=== PATIENT | female | born 1995 | race Two or more races ===

== ENCOUNTER 2025-11-25 09:35 | Observation (INO) | payer MEDICAID, OTHER ==
[~2025-11-25] VITALS: Ht 172.7 cm; Wt 108.4 kg
--- NOTE | 2025-11-25 11:14 | DVH ---
LIMITED OB ULTRASOUND > 14 WKS: HISTORY: r/o previa, abruption. TECHNIQUE: Multiple real-time grayscale images of the gravid uterus with duplex Doppler color flow and M-mode spectral analysis. FINDINGS: There is a single intrauterine which is partially imaged. heart rate 153 beats per minute. ANASTACIO 20.1 cm Cervix 3.1 cm. Cervix is closed. Right transverse maternal presentation Grade 1 anterior Placenta without previa or abruption. IMPRESSION: 1. No evidence of placenta previa or abruption. heart rate measures 153 beats per minute.
[2025-11-25 11:15] LABS: Hematocrit 37.3 % (36.0-46.0); Hemoglobin 12.8 g/dL (12.2-16.2); Mean Corpuscular Hemoglobin 31.5 pg (28.0-32.0); Mean Corpuscular Volume 91.7 fL (80.0-100.0); Nucleated Red Blood Cells % 0.0 %
[2025-11-25 11:34] LABS: INR 0.94 (0.9-1.15); Partial Thromboplastin Time 27.2 SEC (24.5-34.5); Prothrombin Time 10.0 sec (9.3-11.8)
[2025-11-25 11:38] LABS: Alanine Aminotransferase 16 U/L (7-40); Albumin 4.0 g/dL (3.2-4.8); Alkaline Phosphatase 87 U/L (46-116); Anion Gap 9 (5-15); BUN/Creatinine Ratio 15.1 (10.0-20.0); Calcium 9.2 mg/dL (8.7-10.4); Carbon Dioxide 22 mmol/L (20-31); Chloride 106 mmol/L (98-107); Glucose 77 mg/dL (74-106); Potassium 3.8 mmol/L (3.5-5.1); Sodium 137 mmol/L (136-145); Total Protein 7.2 g/dL (5.7-8.2); Uric Acid 3.1 mg/dL (3.1-7.8)
[2025-11-25 11:39] LABS: Bilirubin, Total 0.3 mg/dL (0.2-1.0)
[2025-11-25 11:50] LABS: Blood Urea Nitrogen 8 mg/dL (9-23)
[2025-11-25 12:05] LABS: Urine Protein, UAD Negative (Negative)
[2025-11-25 12:10] LABS: Protein, Urine 17.2 mg/dL (1-14)
--- NOTE | 2025-11-25 15:50 | DVHDS2 ---
Physician Discharge Progress N Final Diagnosis: ABD PAIN 33WKS Operations or Procedures: Operations or Procedures NST REACTIVE REVIWED,SONO Condition on Discharge: Good Disposition: Home Discharge Instructions: Diet: Regular Activity: Light activity Medications: NA Follow Up Care: Specialist: 1D WITH OB Discharge Statement: "Patient was advised to return to the ER or call 911 if any headaches, dizziness, shortness of breath, chest pain, abdominal pain, bleeding, fevers, or worsening of medical condition. Patient was counseled about treatment plan, medications, possible side effects, patientverbalized understanding. All questions were answered to the best of my ability. This discharge took greater then 30 minutes in planning, reviewing documentatio n, counseling the patient, and discussing with other team members." Visit Coding OBGYN Date of Service: Nov 25, 2025 Billing Provider: WALE PALMER DO GINNER Common Visit Codes: 79469-[id number] OBS CARE (HIGH) GINNER Procedure Codes: 24806-85- NON-STRESS TEST WALE PALMER DO Nov 25, 2025 15:49
== END 2025-11-25 13:14 | disposition home or self-care (01) ==
LOC: LDRP 09:35
PROVIDERS: ADMIT Obstetrics & Gynecology; ATTEND Obstetrics & Gynecology
DX: O26.893 Other specified pregnancy related conditions, third trimester (principal); R10.9 Unspecified abdominal pain; Z3A.33 33 weeks gestation of pregnancy; Z98.890 Other specified postprocedural states
CPT/HCPCS: 36415; 76815; 80053; 81001; 81002; 82570; 84156; 84550; 85025; 85610; 85730; 94760; A4649; G0378; 59025

== ENCOUNTER 2025-11-27 08:04 | Observation (INO) | payer MEDICAID ==
[2025-11-27 08:53] LABS: Protein, Urine 27.3 mg/dL (1-14)
[2025-11-27 08:57] LABS: Urine Protein, UAD TRACE (Negative)
[2025-11-27 09:03] LABS: Protein, Urine < 6.0 mg/dL (1-14)
[2025-11-27 09:39] LABS: 24 Hr. Total Protein, Urine 137.99977 mg/24 Hr (<149.1); Urine Total Volume, 24 Hours 2300 mL
--- NOTE | 2025-11-29 19:24 | DVHDS2 ---
Physician Discharge Progress N Final Diagnosis: pih ruled out 24wks Operations or Procedures: Operations or Procedures nst,sono,labs Condition on Discharge: Good Disposition: Home Discharge Instructions: Diet: Regular Activity: No Restrictions, As Tolerated Medications: na Follow Up Care: Specialist: 1w Discharge Statement: "Patient was advised to return to the ER or call 911 if any headaches, dizziness, shortness of breath, chest pain, abdominal pain, bleeding, fevers, or worsening of medical condition. Patient was counseled about treatment plan, medications, possible side effects, patientverbalized understanding. All questions were answered to the best of my ability. This discharge took greater then 30 minutes in planning, reviewing documentatio n, counseling the patient, and discussing with other team members." Visit Coding OBGYN Date of Service: Nov 27, 2025 Billing Provider: WALE PALMER DO PROPOSAL CONSULTANT Common Visit Codes: 74629-[id number] INP/OBS CARE (HIGH) PROPOSAL CONSULTANT Procedure Codes: 72051-71- NON-STRESS TEST WALE PALMER DO Nov 29, 2025 19:24
== END 2025-11-27 09:57 | disposition home or self-care (01) ==
LOC: LDRP 08:04 → UNDOADMOB 08:04 → LDRP 08:18
PROVIDERS: ADMIT Obstetrics & Gynecology; ATTEND Obstetrics & Gynecology
DX: O62.9 Abnormality of forces of labor, unspecified (principal); Z3A.24 24 weeks gestation of pregnancy; Z79.899 Other long term (current) drug therapy; Z98.890 Other specified postprocedural states
CPT/HCPCS: 81001; 81002; 82570; 84156; 94760; G0378